=== PATIENT | female | born 1985 | race Caucasian/White ===

== ENCOUNTER 2019-05-13 00:52 | Inpatient (IN) ==
--- NOTE | 2019-05-13 01:56 | History & Physical Report ---
Date of Service May 13, 2019 Assessment & Plan (1) Right renal mass: Ms. Grullon is a 33 year old female with no significant past medical history who was transferred to [facility] from [facility] due to a right sided renal mass. Labs at OSH: WCC 7.9, Hgb 10.8, Platelets 234 Na 140, K 3.1, Cl 101, CO2 29, BUN 4, Creatinine 0.8, Glucose 85, Calcium 8.7. Normal LFTs and lipase. PT 14.10, INR 1.2, PTT 30.8 Lactic Acid 1 UDS negative UA positive for RBC, WBC, and bacteria Right Sided Renal Mass -admit to med/surg -CT abdomen from OSH - "heterogeneous well defined right lower pole renal mass measuring 2.4 cm x 2.2cm x 2.8cm with an accessory right renal artery. ddx: hemorrhagic cyst, focal nephronia, renal tumor. Hyperdense material in right ureter which could represent hematuria. Free fluid in paracolic gutter which may represent hemorrhagic ascites. Moderate free fluid in cul-de-sac and bilateral adnexa. 1.8cm right ovarian cyst." -MRI of abdomen ordered to further evaluate renal mass -afebrile, no WCC elevation, normal lactate, vitals WNL -urine test at outside hospital negative -urology aware, consult placed -given concern for renal abscess, will initiate treatment with IV Zosyn -NPO, maintenance IVF with NS + 20 KCl at 95 mls/hr x 2 bags -analgesia - tylenol, toradol and morphine -IV zofran prn for nausea Hypokalemia -potassium 3.1 in [place] -recheck with AM labs Anemia -patient reportedly has a history of this -Hgb 10.8 -patient currently taking iron supplementation Code status: FULL DVT prophylaxis: SCDs Disposition: admit to med/surg (2) Hypokalemia: (3) History of tubal ligation: (4) History of delivery: History of Present Illness Chief Complaint: Right sided renal mass Primary Care Provider: NO PCP Ms. Grullon is a 33 year old female with no significant past medical history who was transferred to [facility] from [facility] due to a right sided renal mass. Ms. Grullon presented to [facility] yesterday due to intermittent RLQ pain that had been worsening over the past 2 days. The pain was associated with nausea, and chills, but no fever or vomiting. She reports the pain is located in her RLQ, and wraps around to her back. She states it is intermittent in nature, and worse when her bladder is full. She denies dysuria, hematuria, or urgency. She does report vaginal spotting. She states she checked her temperature at home and it was never elevated beyond 100F. PMHx: Hx of ruptured ovarian cyst PSHx: tubal ligation, C/S x 3 Medications: iron supplementation Allergies: celexa Social hx: Works as a cashier tube room. Smoker, 1 PPD. Allergies Allergy/AdvReac Type Severity Reaction Status Date / Time citalopram [From Celexa] Allergy Abdominal Verified 05/13/19 02:28 Pain Past Med/Surg History Medical History delivery delivered Social History Preferred Language: Citizen Of [place] Communication Ability: Effective Infant Nanny Required: Yes Beliefs That Will Affect Care: None Current Living Situation: Spouse Other Information That Helps Us Care for You: No Feels Safe at Home: Yes Safety Concerns: Feels Safe At This Time Smoking Status: Current every day smoker Tobacco Type: cigarettes ; Cigarettes Per Day: 10-20 ; Do You Dip or Chew Tobacco: No ; Second Hand Exposure: Yes ; Hx Alcohol Use: No Hx Substance Use: No Review of Systems Constitutional: + chills, + fatigue and + anorexia; no fever Respiratory: no cough, no dyspnea and no wheezing Cardiovascular: + chest pain (ongoing for years); no palpitations, no lightheadedness, no syncope, no edema and no calf pain Gastrointestinal: + abdominal pain and + nausea; no vomiting and no change in bowel habits Genitourinary: + abnormal vaginal bleeding; no dysuria, no difficulty urinating, no urinary frequency, no urinary urgency and no hematuria Musculoskeletal: + back pain Integumentary: no rash Physical Exam Constitutional: WD/WN, vitals as above + well hydrated; no acute distress Eyes: PERRL, conjunctivae normal, anicteric sclerae ENMT: external ear and nose normal, oropharynx normal Respiratory: normal respiratory effort, lungs clear to auscultation Cardiovascular: RRR, no murmur, no edema Gastrointestinal (Abdomen): Inspection/Auscultation: abdomen normal to inspection; abdomen not distended Percussion/Palpation: + abdomen tender (TTP in RLQ) and abdomen soft; no guarding and abdomen not rigid + right sided flank tenderness Musculoskeletal: no cyanosis or clubbing, extremities motor strength 5/5 Skin: no rashes, warm and dry Psychiatric: A+Ox3, euthymic affect Code Status & VTE Plan VTE Prophylaxis Plan VTE Prophylaxis will be ordered: Yes Supervising Physician Co-Signing Physician Notes Attending addendum: I have physically seen this patient, have supervised the medical residents activities, and agree with the H&P unless as otherwise noted. Assessment and Plan: Right renal mass- Differential on CT from transferring hospital is hemorrhagic cyst versus focal nephronia versus tumor, 2.4 x 2.2 x 2.8 cm in size. LEAD JAVA DEVELOPER ARCHITECT admission. Consult urology. Order MRI for further assessment. NPO Zofran 4 mg IV every 6 hours as needed nausea. Pain control with Tylenol, Toradol and morphine as needed. Follow serial laboratories. Follow urine cultures and blood cultures. Remaining orders and notations noted. Resident Activity Tracking Resident Involvement: Resident Care Provided Care Provided: Adult Hospital Medicine
[2019-05-13] MEDS ORDERED: ONDANSETRON INJ 2 MG/ML 2 ML VIAL IV PRN (02:30)
[2019-05-13] MEDS ORDERED: PIPERACILLIN/TAZOBACTAM 3.375 GM in DEXTROSE 5% 100 ML IV ONE (02:30)
[2019-05-13] MEDS ORDERED: PIPERACILL/TAZOBAC CONSULT ACTIVE PRN (02:30)
[2019-05-13] MEDS ORDERED: KETOROLAC TROMETHAMINE 15 MG/ML VIAL IV PRN (02:30)
[2019-05-13] MEDS: NSS + 20MEQ KCL 20 MEQ/1,000 ML BAG IV SCH ×2 (03:11→15:34)
[2019-05-13] MEDS: MoRPHine SULFATE 2 MG/ML CARP IV PRN ×4 (03:19→14:14)
[2019-05-13 05:43] LABS: Basophils # (auto) 0.01 K/uL (0-0.2); Basophils % (auto) 0.2 %; Eosinophils # (auto) 0.07 K/uL (0-0.5); Eosinophils % (auto) 1.1 %; Hematocrit (blood only) 31.4 % (37-47); Hemoglobin 9.7 g/dL (12.0-16.0); Lymphocytes # (auto) 2.36 K/uL (1.2-3.4); Lymphocytes % (auto) 37.7 %; Mean Corpuscular Hemoglobin 24.6 pg (25-34); Mean Corpuscular Hgb Conc 30.9 g/dL (32-36); Mean Corpuscular Volume 79.5 fL (80-100); Mean Platelet Volume 9.6 fL (7.4-10.4); Monocytes # (auto) 0.63 K/uL (0.11-0.59); Monocytes % (auto) 10.1 %; Neutrophils # (auto) 3.19 K/uL (1.4-6.5); Neutrophils % (auto) 50.9 %; Platelet Count 184 K/uL (130-400); RDW Coefficient of Variation 18.2 % (11.5-14.5); RDW Standard Deviation 52.8 fL (36.4-46.3); Red Blood Count 3.95 M/uL (4.2-5.4); White Blood Count 6.26 K/uL (4.8-10.8)
[2019-05-13 05:57] LABS: INR 1.2 (0.9-1.1); Prothrombin Time 11.7 Seconds (9.0-12.0)
[2019-05-13 06:10] LABS: Calcium 8.1 mg/dl (8.5-10.1); Est GFR (African American) 110.6; Est GFR (Non-African American) 95.4; Potassium 3.4 mmol/L (3.5-5.1)
[2019-05-13] MEDS: PIPERACILLIN/TAZOBACTAM 3.375 GM in DEXTROSE 5% 100 ML IV SCH ×3 (08:07→23:45)
[2019-05-13] MEDS ORDERED: POTASSIUM CHLORIDE 20 MEQ TABCR PO STA (08:47)
--- NOTE | 2019-05-13 10:15 | Urology Consultation ---
Date of Consultation May 13, 2019 Assessment & Plan (1) Right renal mass: Renal mass? CT reviewed - in review of imaging from [place] - there is an area on the anterior portion of the extreme lower pole that has raised some concerns - but on coronal/sag views - I am not 100% certain about the nature of this lesion (simply a normal renal contour vs a mass). I think the MRI will better define this. Overall, I suspect this lesion is an incidental finding and not the cause of her hospitalization or pain She is not showing signs of pyelo/UTI The size of the lesion is quite small, and if it proves to be a true renal mass, definitive treatment will happen as an outpt - not in the acute setting. Following the MRI - if she is stable, she can likely be d/mike home for out pt f/u History of Present Illness Attending Physician: Jerry Zabala MD History of Present Illness 33y/o female, generally in [place] [facility] aside from chronic chest pain and HAs experienced severe right flank pain and lower abdominal pain for the past 2 days denies hematuria or dysuria no hx of stones - no stone passage no fevers prior to arrival CT in [place] - 2cm right lower pole renal mass - imaging scanned into our system - I have reviewed this extensively feeling ok today plan for MRI this AM to better define the kidney anatomy Allergies Allergy/AdvReac Type Severity Reaction Status Date / Time citalopram [From Celexa] Allergy Abdominal Verified 05/13/19 02:28 Pain Patient History Medical History delivery delivered Social History Preferred Language: Ug[place] Communication Ability: Effective Party Plan Demonstrator Required: Yes Beliefs That Will Affect Care: None Current Living Situation: Spouse Other Information That Helps Us Care for You: No Feels Safe at Home: Yes Safety Concerns: Feels Safe At This Time Smoking Status: Current every day smoker Tobacco Type: cigarettes ; Cigarettes Per Day: 10-20 ; Do You Dip or Chew Tobacco: No ; Second Hand Exposure: Yes ; Hx Alcohol Use: No Hx Substance Use: No Review of Systems Review of Systems: All systems reviewed & are unremarkable except as noted in HPI & below Physical Exam Constitutional: well developed and well nourished Neck: neck nontender Respiratory: normal respiratory effort; no respiratory distress and does not use accessory muscles Cardiovascular: Rate/Rhythm: regular rate Vessels: radial pulses present Extremities: no edema Gastrointestinal (Abdomen): Inspection/Auscultation: abdomen normal to inspection Percussion/Palpation: abdomen soft (no real CVA tenderness, no suprapubic tenderness); abdomen nontender and no guarding Musculoskeletal: Head/Neck/Chest: normocephalic and head atraumatic Extremities: extremities normal to inspection Skin: no rashes and no lesions Trauma: no evidence of skin trauma Neurologic: awake; not obtunded Speech / Cognition: normal speech Motor/Sensory: no tremor Psychiatric: Orientation: alert and oriented x 3 Lymphatic: no lymphadenopathy Results & Data Vital Signs (Past 12 Hours) Vital Signs Temp Pulse Resp BP Pulse Ox 05/13/19 07:52 36.5 C 60 15 103/62 98 05/13/19 01:47 36.6 C 12 111/72 97 PG Care Time/CCT Total # of Minutes Spent Total Time Spent with Patient: Total time spent is greater than 50% in coordination of care (as documented) at patient's floor/unit and/or counseling patient:
[2019-05-13 12:39] LABS: Albumin Level 2.9 gm/dl (3.4-5.0); Bilirubin Direct 0.1 mg/dl (0-0.2); Bilirubin,Total 0.4 mg/dl (0.2-1); Thyroid Stimulating Hormone 1.88 uIu/ml (0.300-4.500)
[2019-05-13] MEDS ORDERED: IRON SUCROSE 100 MG in 0.9 % SODIUM CHLORIDE 100 ML IV ONE (13:30)
[2019-05-13] MEDS ORDERED: GADOBUTROL 30ML VIAL IV PRN (13:37)
--- NOTE | 2019-05-13 14:04 | Magnetic Resonance Report ---
MR abdomen wo/w con CLINICAL HISTORY: 33 years-old Female presenting with evaluate right sided kidney mass. TECHNIQUE: Multisequence, multiplanar MR imaging of the abdomen was performed before and after the ad ministration of intravenous contrast. IV contrast: 5.5 mL of Gadavist. COMPARISON: CT from 05/12/2019 performed at an outside hospital. FINDINGS: Localizer images: Unremarkable. Lung bases: Normal heart size. No pericardial or pleural effusion. Lung base clear. Liver: Normal morphology. No liver lesion. Normal hepatic fat fraction. Patent hepatic vasculature. Biliary: No intrahepatic or extrahepatic biliary ductal dilatation. Normal gallbladder. Pancreas: Normal. Spleen: Normal. Adrenal glands: Normal. Kidneys and ureters: The lower pole of the right kidney does not contain a discrete mass. There is a cortical accessory renal artery to the lower pole the right kidney as mentioned on recent CT. Mild as ymmetric right perinephric fat infiltration. The right renal pelvis may be mildly ectatic relative to the left. No hydronephrosis. Mild right urothelial thickening asymmetric to the left. Bowel: Normal. No bowel obstruction. Peritoneal cavity: No free fluid. Lymph nodes: No enlarged lymph nodes in the abdomen. Vasculature: Aorta and IVC patent and normal in caliber. Abdominal wall: Normal. Musculoskeletal: Normal. IMPRESSION: 1. No discrete renal mass. Findings favor an inflammatory process of the right kidney with concern f or pyelonephritis. Correlate with urinalysis. The appearance of the lower pole of the right kidney is suspected to be due to the presence of the accessory vascular supply or less likely focal nephronia/ focal nephritis. Follow-up ultrasound in one to 3 months is recommended. Electronically signed by: Yoel Perla M.D. 05/13/2019 2:02 PM
[2019-05-13] MEDS: LORazepam 0.5 MG/1 ML VIAL IV SCH ×2 (14:23→19:04)
--- NOTE | 2019-05-13 14:47 | History & Physical Bridge Note ---
Date of Service May 13, 2019 History & Physical Bridge Note I have examined the patient, reviewed the History & Physical and in the interval since the performance of the History & Physical I have noted the following changes of clinical significance: no changes noted Ms. Grullon continues to have abdominal pain. She also reports years of intermittent chest pain not associated with exertion and chronic headaches. On she was taken to the emergency department for what they told her was an anxiety attack although she did not actually feel anxious, just had similar symptoms. She is notably anemic on her labs with an iron of 20, she remained hypokalemic this morning. She does not have frequent stools or chronic diarrhea. Abdomen MRI did not see a discrete mass but concerned for pyelonephritis. No leukocytosis, fever, or chills. EKG for chest pain showed normal sinus rhythm - check U/A - In discussing her nutrition history she admits to a very poor diet with a lot of junk food and mountain dew so her deficiencies could certainly be nutritional but will send a celiac panel. Will give IV Venofer today. She reports she has a hard time maintaining a po iron regimen. She was diagnosed with anemia at age 18. - TSH was wnl - check 24 hour urine metanephrines - check gallbladder US - clear liquid diet - continue tobacco cessation counseling
[2019-05-13] MEDS ORDERED: DEXTROSE 50% 50 ML SYRINGE IV ONE (18:29)
[2019-05-13] MEDS ORDERED: DEXTROSE 50% 50 ML SYRINGE IV STA (18:46)
--- NOTE | 2019-05-13 19:53 | Ultrasound Report ---
US gallbladder CLINICAL HISTORY: 33 years-old Female presenting with abdominal pain. TECHNIQUE: Real-time grayscale and limited color Doppler ultrasound imaging of the abdomen limited to the right upper quadrant was performed. COMPARISON: None. FINDINGS: Pancreas: Visualized portions of the pancreatic head and body normal. Liver: Normal echogenicity and echotexture. The liver measures 14.4 cm in maximal sagittal dimension. No sonographic evidence of hepatic mass. Main portal vein patent with normal directional flow. Biliary: No intrahepatic biliary ductal dilatation. Common bile duct measures up to 4 mm in diameter. Gallbladder: No evidence of gallstones. The gallbladder is mildly distended possibly on a physiologic basis. Small amount of pericholecystic fluid along the interface with the liver. No gallbladder wall thickening. Sonographic Garland's sign positive. Right kidney: Normal in appearance without evidence of hydronephrosis. Ascites: None. Other: None. IMPRESSION: Pericholecystic fluid with a mildly distended gallbladder and positive sonographic Garland's sign. In the absence of cholelithiasis this is less specific for cholecystitis though this remains of concern. Notably, these findings were not apparent on same day MRCP. Consider further confirmation with HIDA scan could be considered for clarification depending on the level of clinical concern and patient sym ptomatology. Electronically signed by: Yoel Perla M.D. 05/13/2019 7:52 PM
--- NOTE | 2019-05-13 21:09 | Billing Data ---
Date of Service May 13, 2019 Coding Level of Care Code 43530 Initial Inpt Care Lvl 3
[2019-05-14] MEDS: MoRPHine SULFATE 2 MG/ML CARP IV PRN ×4 (03:19→21:15)
[2019-05-14 05:29] LABS: Appearance Urine Clear (Clear); Bilirubin Urine Negative (Negative); Blood Urine 1+ (Negative); Color Urine Yellow; Glucose Urine UA Negative (Negative); Ketones Urine 1+ (Negative); Leukocyte Esterase Urine Negative (Negative); Nitrite Urine Negative (Negative); Protein Urine Negative (Negative); Specific Gravity Urine 1.015 (1.000-1.030); Urobilinogen Urine Negative (Negative); pH Urine 5.5 (4.5-7.5)
[2019-05-14 05:37] LABS: Epithelial Cell Urine >30 /lpf (0-5)
[2019-05-14 05:38] LABS: WBC Urine 0-5 /hpf (0-5)
[2019-05-14 05:39] LABS: Bacteria Urine Negative (Negative)
[2019-05-14 06:13] LABS: Basophils # (auto) 0.03 K/uL (0-0.2); Basophils % (auto) 0.7 %; Eosinophils # (auto) 0.12 K/uL (0-0.5); Eosinophils % (auto) 2.7 %; Hematocrit (blood only) 28.5 % (37-47); Hemoglobin 8.6 g/dL (12.0-16.0); Immature Granulocytes # (auto) 0.01 K/uL (0.00-0.02); Immature Granulocytes % (auto) 0.2 %; Lymphocytes # (auto) 1.55 K/uL (1.2-3.4); Lymphocytes % (auto) 34.6 %; Mean Corpuscular Hemoglobin 24.4 pg (25-34); Mean Corpuscular Hgb Conc 30.2 g/dL (32-36); Mean Platelet Volume 9.5 fL (7.4-10.4); Monocytes # (auto) 0.38 K/uL (0.11-0.59); Monocytes % (auto) 8.5 %; Neutrophils # (auto) 2.39 K/uL (1.4-6.5); Neutrophils % (auto) 53.3 %; Platelet Count 164 K/uL (130-400); RDW Coefficient of Variation 18.4 % (11.5-14.5); RDW Standard Deviation 54.1 fL (36.4-46.3); Red Blood Count 3.52 M/uL (4.2-5.4); White Blood Count 4.48 K/uL (4.8-10.8)
[2019-05-14 06:52] LABS: Albumin Level 2.7 gm/dl (3.4-5.0); BUN Creatinine Ratio 4.5 (10-20); Calcium 8.2 mg/dl (8.5-10.1); Est GFR (African American) 110.6; Est GFR (Non-African American) 95.4; Potassium 3.4 mmol/L (3.5-5.1)
[2019-05-14 06:55] LABS: Bilirubin,Total 0.3 mg/dl (0.2-1); Globulin 2.8 gm/dl (2.5-4.0); Total Protein 5.5 gm/dl (6.4-8.2)
[2019-05-14] MEDS: PIPERACILLIN/TAZOBACTAM 3.375 GM in DEXTROSE 5% 100 ML IV SCH ×3 (08:34→23:38)
--- NOTE | 2019-05-14 09:54 | Urology Progress Note ---
Date of Service May 14, 2019 Assessment & Plan (1) Right flank pain: 33yo F admitted with flank pain UA with few RBCs but not overly suspicious for UTI. UC&S has not been sent, pt now on broad spectrum abx. MRI reassuring no sign of discrete mass. Right flank pain has resolved per patient report. She is presently stable from standpoint. Recommend 2 weeks of abx for possible early pyelonephritis. We will arrange followup in 2-3 months with Renal US and check UA. Thank you for allowing us to participate in the acute care of Ms. Grullon. Please reconsult us with additional questions, concerns or changes in patient status. Subjective Pt lying in bed, wrapped in blankets upon evaluation this AM. States she feels "terrible". States she no longer has pain in right flank, has now moved to her entire abdomen and thoracic area. Denies LUTS, gross hematuria. MRI results reviewed, revealing no discrete renal mass. Findings favor an inflammatory process of the right kidney. The appearance of the lower pole of the right kidney is suspected to be due to the presence of the accessory vascular supply or less likely focal nephronia/focal nephritis. NPO on hold for possible HIDA scan today. Review of Systems Review of Systems: All systems reviewed & are unremarkable except as noted in HPI & below Physical Exam Physical Exam: A&Ox3 Resp rate regular Results & Data Vital Signs (Past 12 Hours) Vital Signs Temp Pulse Resp BP Pulse Ox 05/14/19 07:12 36.6 C 66 19 92/52 L 99 05/13/19 23:05 37 C 70 18 101/66 97 PG Care Time/CCT Total # of Minutes Spent Total Time Spent with Patient: Total time spent is greater than 50% in coordination of care (as documented) at patient's floor/unit and/or counseling patient:
[2019-05-14] MEDS ORDERED: SINCALIDE 1.1 MCG in 0.9 % SODIUM CHLORIDE 100 ML IV SCH (11:00)
--- NOTE | 2019-05-14 12:34 | Nuclear Medicine Report ---
NM hepatobiliary EF CLINICAL HISTORY: 33 years-old Female with equivocal gallbladder US. Acute right upper quadrant abdo lashay pain TECHNIQUE: Following the intravenous administration of 5.03 mCi of technetium-99m Choletec, sequenti al abdominal images were obtained. In order to evaluate the contractile response of the gallbladder, 1.1 mcg of Kinevac was administered by slow intravenous infusion over 30 minutes starting approximat millie 60 minutes after the administration of the radiopharmaceutical. Sequential imaging was continued for 45 minutes after the start of the Kinevac infusion. COMPARISON: Right upper quadrant abdominal ultrasound 05/13/2019 FINDINGS: There is prompt, uniform accumulation of the tracer by the liver. There is normal filling of the int rahepatic ducts, common bile duct and gallbladder and normal excretion of the tracer into the duodenu m. There is decreased contraction of the gallbladder. The calculated gallbladder ejection fraction is 14% (normal >40%). There is moderate enterogastric reflux. IMPRESSION: 1. Decreased contractile response of the gallbladder to Kinevac infusion. 2. Moderate enterogastric reflux. The above report was generated using voice recognition software. It may contain grammatical, syntax o r spelling errors. Electronically signed by: Celso Mon M.D. 05/14/2019 12:33 PM
--- NOTE | 2019-05-14 15:07 | Surgery Consultation ---
Date of Consultation May 14, 2019 Assessment & Plan (1) Right flank pain: Patient does have dysfunction of her gallbladder and it is somewhat distended. I am not convinced she has acute cholecystitis or even significant biliary colic Seems to be hungry and wants to try normal food. Do not feel that I have to Suggest she have her gallbladder out Urgently. She seems to fail advancement of her diet then we may consider proceeding with laparoscopic cholecystectomy. I do think she could be followed in the office depending on her progress History of Present Illness Attending Physician: Servando Zarco Richelle History of Present Illness Patient admitted with what appears to be right flank pain And possible mild pyelonephritis. She had an MRI scan which showed A normal gallbladder, However Her ultrasound shows a mildly dilated gallbladder with mild thickening And no stone, There is a question of a Garland sign. She had a HIDA scan She did show visualization of her gallbladder but poor ejection fraction. Currently she is in her room walking Normally and she says she is hungry She has not had any nausea or vomiting. Allergies Allergy/AdvReac Type Severity Reaction Status Date / Time citalopram [From Celexa] Allergy Abdominal Verified 05/13/19 02:28 Pain Patient History Medical History delivery delivered Social History Preferred Language: Yi Communication Ability: Effective Structural Analysis Engineer Required: Yes Beliefs That Will Affect Care: None Current Living Situation: Spouse Other Information That Helps Us Care for You: No Feels Safe at Home: Yes Safety Concerns: Feels Safe At This Time Smoking Status: Current every day smoker Tobacco Type: cigarettes ; Cigarettes Per Day: 10-20 ; Do You Dip or Chew Tobacco: No ; Second Hand Exposure: Yes ; Hx Alcohol Use: No Hx Substance Use: No Review of Systems Review of Systems: All systems reviewed & are unremarkable except as noted in HPI & below Physical Exam Physical Exam: Patient does not appear to be ill, She does have mild right upper quadrant tenderness to palpation I am not convinced this is from her gallbladder. Respiratory: normal respiratory effort; no respiratory distress Cardiovascular: Rate/Rhythm: regular rate Gastrointestinal (Abdomen): Inspection/Auscultation: abdomen normal to inspection; abdomen not distended Skin: no rashes, warm and dry Neurologic: awake Psychiatric: Orientation: alert Results & Data Vital Signs (Past 12 Hours) Vital Signs Temp Pulse Resp BP Pulse Ox 05/14/19 07:12 36.6 C 66 19 92/52 L 99 I have reviewed her ultrasound And MRI PG Care Time/CCT Total # of Minutes Spent Total Time Spent with Patient: Total time spent is greater than 50% in coordinat ion of care (as documented) at patient's floor/unit and/or counseling patient:
[2019-05-14 18:28] LABS: Hematocrit (blood only) 31.3 % (37-47); Hemoglobin 9.3 g/dL (12.0-16.0)
--- NOTE | 2019-05-14 23:33 | Hospitalist Progress Note ---
Date of Service May 14, 2019 Assessment & Plan (1) Right renal mass: Ms. Grullon is a 33 year old female with no significant past medical history who was transferred to [facility] from [facility] due to a right sided renal mass. Labs at OSH: WCC 7.9, Hgb 10.8, Platelets 234 Na 140, K 3.1, Cl 101, CO2 29, BUN 4, Creatinine 0.8, Glucose 85, Calcium 8.7. Normal LFTs and lipase. PT 14.10, INR 1.2, PTT 30.8 Lactic Acid 1 UDS negative UA positive for RBC, WBC, and bacteria Right Sided Renal Mass -admit to med/surg -CT abdomen from OSH - "heterogeneous well defined right lower pole renal mass measuring 2.4 cm x 2.2cm x 2.8cm with an accessory right renal artery. ddx: hemorrhagic cyst, focal nephronia, renal tumor. Hyperdense material in right ureter which could represent hematuria. Free fluid in paracolic gutter which may represent hemorrhagic ascites. Moderate free fluid in cul-de-sac and bilateral adnexa. 1.8cm right ovarian cyst." -MRI of abdomen ordered to further evaluate renal mass -MRI does not show a mass, howeVer signs of possible pyelonephritis, will continue with antibIotic. -afebrile, no WCC elevation, normal lactate, vitals WNL -urine test at outside hospital negative -urology aware, appreciate input. -AWAITING URINE CULTURE RESULTS -analgesia - tylenol, toradol and morphine -IV zofran prn for nausea Hypokalemia -potassium 3.4 will replace and monitor. Anemia -patient reportedly has a history of this -Hgb 10.8 -patient currently taking iron supplementation Code status: FULL DVT prophylaxis: SCDs Disposition: admit to med/surg (2) Hypokalemia: (3) History of tubal ligation: (4) History of delivery: (5) Abdominal pain: PATIENT NOW HAVING GENERALIZED ABDOMINAL PAIN. Unsure as the cause. her exam appears benign. Her vitals are also stable wondering if this has a somatic cause and may benefit from gabapentin or cymbalta. At the moment, will need to rule out other potential causes. Consulted Gen surg. for possible cholecystectomy. However, patient states she is hungry. Will do trial of food. If pain persists, may consider GI consult for possible scope. Subjective 33 YO FEMALE REPORTS THAT she continues to have abdominal pain. She states it is no longer in her right flank but now it is generalized.She reports pain was sharp when it was in the right flank but now it is dull and intermittent. But the frequency has been gradually improving. She states this has been accompanied by loose stools for the past 24-48 hours. Review of Systems Review of Systems: All systems reviewed & are unremarkable except as noted in HPI & below Physical Exam Physical Exam: Constitutional: WD/WN, vitals as above + well hydrated; no acute distress Eyes: PERRL, conjunctivae normal, anicteric sclerae ENMT: external ear and nose normal, oropharynx normal Respiratory: normal respiratory effort, lungs clear to auscultation Cardiovascular: RRR, no murmur, no edema Gastrointestinal (Abdomen): Inspection/Auscultation: abdomen normal to inspection; abdomen not distended Percussion/Palpation: + abdomen tender generalized and abdomen soft; no guarding and abdomen not rigid, no rebound tenderness Musculoskeletal: no cyanosis or clubbing, extremities motor strength 5/5 Skin: no rashes, warm and dry Psychiatric: A+Ox3, euthymic affect Results & Data Vital Signs (Past 12 Hours) Vital Signs Temp Pulse Resp BP BP Pulse Ox 05/14/19 16:58 36.7 C 56 L 16 109/54 L 100 05/14/19 15:31 36.7 C 66 18 102/65 99 PG Care Time/CCT Total # of Minutes Spent Total Time Spent with Patient: Total time spent is greater than 50% in coordination of care (as documented) at patient's floor/unit and/or counseling patient:
[2019-05-15] MEDS: MoRPHine SULFATE 2 MG/ML CARP IV PRN ×6 (03:33→23:50)
--- NOTE | 2019-05-15 06:51 | Surgery Progress Note ---
Date of Service May 15, 2019 Assessment & Plan (1) Abdominal pain: I think we should proceed with laparoscopic cholecystectomy I think she agrees but she is unsure at the present time and wants to discuss it with her Depending on how the day goes my plan will be to proceed tomorrow See how she does today Subjective She did tolerate some food without nausea or vomiting but did have some midepigastric pain during the night Physical Exam Physical Exam: Her abdomen is soft she seems to be resting comfortably Respiratory: no respiratory distress Cardiovascular: Rate/Rhythm: regular rate Skin: no rashes, warm and dry Neurologic: awake Psychiatric: Orientation: alert Results & Data Vital Signs (Past 12 Hours) Vital Signs Temp Pulse Resp BP Pulse Ox 05/14/19 23:05 36.6 C 60 16 114/74 99 PG Care Time/CCT Total # of Minutes Spent Total Time Spent with Patient: Total time spent is greater than 50% in coordination of care (as documented) at patient's floor/unit and/or counseling patient:
[2019-05-15] MEDS: POTASSIUM CHLORIDE 20 MEQ TABCR PO SCH ×2 (08:22→20:47)
[2019-05-15] MEDS: PIPERACILLIN/TAZOBACTAM 3.375 GM in DEXTROSE 5% 100 ML IV SCH ×2 (08:22→16:57)
[2019-05-15 09:51] LABS: Basophils # (auto) 0.04 K/uL (0-0.2); Basophils % (auto) 0.9 %; Eosinophils # (auto) 0.21 K/uL (0-0.5); Eosinophils % (auto) 4.6 %; Hematocrit (blood only) 31.1 % (37-47); Hemoglobin 9.4 g/dL (12.0-16.0); Lymphocytes # (auto) 1.56 K/uL (1.2-3.4); Lymphocytes % (auto) 34.4 %; Mean Corpuscular Hemoglobin 24.5 pg (25-34); Mean Corpuscular Hgb Conc 30.2 g/dL (32-36); Monocytes # (auto) 0.41 K/uL (0.11-0.59); Neutrophils # (auto) 2.32 K/uL (1.4-6.5); Neutrophils % (auto) 51.1 %; Platelet Count 179 K/uL (130-400); RDW Coefficient of Variation 18.6 % (11.5-14.5); RDW Standard Deviation 54.8 fL (36.4-46.3); Red Blood Count 3.84 M/uL (4.2-5.4); White Blood Count 4.54 K/uL (4.8-10.8)
[2019-05-15] MEDS: ACETAMINOPHEN 1,000 MG/100 ML VIAL IV PRN ×2 (09:59→20:47)
[2019-05-15 10:28] LABS: BUN Creatinine Ratio 5.6 (10-20); Calcium 8.7 mg/dl (8.5-10.1); Est GFR (African American) 121.4; Est GFR (Non-African American) 104.7; Magnesium 1.8 mg/dl (1.8-2.4); Potassium 3.8 mmol/L (3.5-5.1)
[2019-05-15 10:33] LABS: Ferritin 59.5 ng/ml (8-388)
[2019-05-15] MEDS: D5W AND 1/2NSS + 20MEQ KCL 20 MEQ/1,000 ML BAG IV SCH (16:52)
[2019-05-15] MEDS: SUCRALFATE 1 GM/10 ML UDC PO SCH ×2 (16:54→20:47)
[2019-05-15 18:41] LABS: Amphetamines+Metham, Urine Neg (Neg); Barbiturates, Urine Neg (Neg); Benzodiazepine, Urine Neg (Neg); Cocaine, Urine Neg (Neg); MDMA (Ecstacy), Urine Neg (Neg); Methadone, Urine Neg (Neg); Opiate, Urine Pos (Neg); Phencyclidine, Urine Neg (Neg)
--- NOTE | 2019-05-15 20:55 | Hospitalist Progress Note ---
Date of Service May 15, 2019 Assessment & Plan (1) Pyelonephritis: right-sided radiographically. was having flank pain recently - this is improved/resolved. urine cx here is negative but it was obtained AFTER antibiotics had been given. will call [facility] tomorrow to see if any urine/blood cx's were done prior to transfer. hopefully can de-escalate abx tomorrow. odd that she never had fevers/chills in midst of this illness. (2) Chest pain: due to GI issues/reflux? anxiety? start carafate 1gm qid and re-eval. treat anxiety as well. (3) Biliary dyskinesia: HIDA scan with marked decrease in EF. No obvious signs of acute cholecystitis on imaging however. With that said, in light of ongoing GI symptoms, gen surg has offered lap delilah. She wishes to proceed; NPO after MN tonight w/ lap delilah tomorrow. Start IVF. (4) Anemia: Ferritin is about 50 but with current infection it could be falsely elevated. MCV is low-normal; do suspect some element of FE def. Check b12/folate in am. This is a significant anemia and needs f/u post-d/c. (5) Abdominal pain: 2nd to right-sided pyelo. 2nd to biliary tract disease? reflux? other causes? treat pain. lap delilah tomorrow. IV zosyn for pyelo with hopes to narrow tomorrow. (6) Right renal mass: ruled OUT. MRI right kidney WITHOUT ANY MASS. MRI most c/w focal pyelonephritis. (7) Anxiety: start buspar 5mg BID. refer for outpatient counseling. consider SSRI. send urine drug screen to be complete. Subjective patient was sitting comfortably in chair when I walked into the room. within a few minutes she was c/o diffuse abdominal pain and even chest discomfort. worst pain was the LOWER abdomen. states she is NOT drinking fluids; no appetite. c/o dizziness with standing. denies right flank pain. denies left flank pain. does have lumbar back pain. with respect to chest pain - states it comes on when the abdominal pain is there. denies excessive burping/belching. denies reflux type symptoms but has had nausea. states she vomited earlier today. no fevers or chills at ANY POINT during her entire illness. did have loose stool x 2 earlier in the day. she DOES want to have lap delilah tomorrow. at one point during the visit she became very upset and was crying. admits to "panic attacks." states that during one panic attack she saught out medical attention in the ER in [place]. I asked her what they gave her for it and she said "nothing." PDMP was reviewed - no benzos given for the anxiety. she admits to numerous psychosocial stressors - 3 children, having surgery soon, issues with employment, etc. Review of Systems Constitutional: + anorexia; no fever and no chills Respiratory: no cough and no dyspnea Cardiovascular: as per Subjective / HPI and + chest pain; no dyspnea, no dyspnea on exertion, no orthopnea and no paroxysmal nocturnal dyspnea Gastrointestinal: + abdominal pain, + bloating, + nausea, + vomiting and + diarrhea/loose stools; no blood in stools Genitourinary: no dysuria and no hematuria Psychiatric: + depression and + anxiety Physical Exam Constitutional: + acute distress (due to pain) and + ill appearing; no altered mental status ENMT: external ear and nose normal, oropharynx normal Respiratory: normal respiratory effort, lungs clear to auscultation Cardiovascular: RRR, no murmur, no edema Heart Sounds: normal S1 and normal S2 Vessels: posterior tibial pulses present and dorsalis pedis pulses present Gastrointestinal (Abdomen): Inspection/Auscultation: normal bowel sounds; abdomen not distended Percussion/Palpation: + abdomen tender (epigastric region) and abdomen soft; no guarding and no hepatosplenomegaly Skin: no rashes, warm and dry Psychiatric: Orientation: alert and oriented x 3 Affect: + anxious affect and + tearful affect Results & Data Vital Signs (Past 12 Hours) Vital Signs Temp Pulse Resp BP Pulse Ox 05/15/19 14:59 36.7 C 59 L 16 125/82 98 Laboratory Results Laboratory Results - last 24 hr 05/15/19 05/15/19 05/15/19 09:33 09:33 17:36 WBC 4.54 L RBC 3.84 L Hgb 9.4 L Hct 31.1 L MCV 81.0 MCH 24.5 L MCHC 30.2 L RDW Std Deviation 54.8 H RDW Coeff of Misti 18.6 H Plt Count 179 MPV 9.0 Immature Gran % (Auto) 0.0 Neut % (Auto) 51.1 Lymph % (Auto) 34.4 [place] % (Auto) 9.0 Eos % (Auto) 4.6 Baso % (Auto) 0.9 Immature Gran # (Auto) 0.00 Neut # (Auto) 2.32 Lymph # (Auto) 1.56 [place] # (Auto) 0.41 Eos # (Auto) 0.21 Baso # (Auto) 0.04 Sodium 142 Potassium 3.8 Chloride 108 H Carbon Dioxide 30 Anion Gap 3.0 BUN 4 L Creatinine 0.75 Est Cr Clr Drug Dosing 81.0 Est GFR ( Amer) 121.4 Est GFR (Non-Af Amer) 104.7 BUN/Creatinine Ratio 5.6 L Glucose 81 Calcium 8.7 Magnesium 1.8 Ferritin 59.5 Lipase 66 L Urine Opiates Screen Pos H U Codeine Confrm GC/MS Ur Morphine (GC/MS) Ur Hydrocodone (GC/MS) Ur Norhydrocodone Ur Noroxycodone Urine Oxycodone (GC/MS) U Oxymorphone GC/MS Ur Methadone, Qual Neg Ur Hydromorphone (GC/MS) Urine Barbiturates Neg Ur Phencyclidine (PCP) Neg U Amphetamin/Meth Scrn Neg MDMA (Ecstasy) Screen Neg U Benzodiazepines Scrn Neg Ur Cocaine Metabolite Neg U Marijuana (THC) Screen Neg Drug Screen Comment 05/15/19 17:36 WBC RBC Hgb Hct MCV MCH MCHC RDW Std Deviation RDW Coeff of Misti Plt Count MPV Immature Gran % (Auto) Neut % (Auto) Lymph % (Auto) [place] % (Auto) Eos % (Auto) Baso % (Auto) Immature Gran # (Auto) Neut # (Auto) Lymph # (Auto) [place] # (Auto) Eos # (Auto) Baso # (Auto) Sodium Potassium Chloride Carbon Dioxide Anion Gap BUN Creatinine Est Cr Clr Drug Dosing Est GFR ( Amer) Est GFR (Non-Af Amer) BUN/Creatinine Ratio Glucose Calcium Magnesium Ferritin Lipase Urine Opiates Screen U Codeine Confrm GC/MS Pending Ur Morphine (GC/MS) Pending Ur Hydrocodone (GC/MS) Pending Ur Norhydrocodone Pending Ur Noroxycodone Pending Urine Oxycodone (GC/MS) Pending U Oxymorphone GC/MS Pending Ur Methadone, Qual Ur Hydromorphone (GC/MS) Pending Urine Barbiturates Ur Phencyclidine (PCP) U Amphetamin/Meth Scrn MDMA (Ecstasy) Screen U Benzodiazepines Scrn Ur Cocaine Metabolite U Marijuana (THC) Screen Drug Screen Comment Pending PG Care Time/CCT Total # of Minutes Spent Total Time Spent with Patient: Total time spent is greater than 50% in coordination of care (as documented) at patient's floor/unit and/or counseling patient: (1) Chest pain Chest pain type: unspecified Qualified Code(s): R07.9 - Chest pain, unspecified (2) Anemia Anemia type: other cause Other causes of anemia: other cause, not classified Qualified Code(s): D64.89 - Other specified anemias (3) Abdominal pain Abdominal location: generalized Qualified Code(s): R10.84 - Generalized abdominal pain
--- NOTE | 2019-05-15 22:04 | Anesthesiology Consultation ---
Date of Service May 15, 2019 Assessment & Plan (1) Abdominal pain: (2) Hypokalemia: (3) Encounter for pre-operative examination: Chart Review Chart Review: Acceptable Risk for Surgery, Patient NOT seen in Pre Admission Testing and data entry processor initiated Consults Requested none History Surgery Operation Date: 05/16/19 12:30 Proposed Procedures p Laparoscopic Cholecystectomy - Abner Lechuga MD, FACS Height/Weight Height: 4 ft 11 in Weight: 55.5 kg Allergies Allergy/AdvReac Type Severity Reaction Status Date / Time citalopram [From Celexa] Allergy Abdominal Verified 05/13/19 02:28 Pain Medications Active Medications Generic Name Dose Route Start Last Admin Trade Name Freq PRN Reason Stop Dose Admin Buspirone HCl 5 mg 05/15/19 21:00 05/15/19 20:47 Buspar PO 06/14/19 20:59 5 mg BID ROSY Administration Gadobutrol 6 ml 05/13/19 13:37 05/13/19 13:38 Gadavist 30ml IV 05/17/19 13:36 6 ml ONCE PRN Administration Interaction Checking Acetaminophen 1,000 mg in 100 mls @ 400 mls/hr 05/13/19 02:30 05/15/19 21:02 Ofirmev IV 05/16/19 02:29 Infused Q8H PRN Infusion Pain or Fever Piperacillin Sod/Tazobactam 115 mls @ 28.75 mls/hr 05/13/19 08:00 05/15/19 21:02 Sod 3.375 gm/ Dextrose IV 05/23/19 07:59 Infused Q8H ROSY Infusion Protocol Potassium Chloride/Dextrose/Sod Cl 20 meq in 1,000 mls @ 100 mls/hr 05/15/19 16:30 05/15/19 16:52 D5w And 1/2nss + 20meq Kcl IV 06/14/19 16:29 100 mls/hr .Q10H ROSY Administration Ketorolac Tromethamine 15 mg 05/13/19 02:30 05/14/19 22:18 Toradol IV 05/18/19 02:29 15 mg Q6H PRN Administration Pain Morphine Sulfate 2 mg 05/13/19 02:30 05/15/19 20:00 Morphine Sulfate IV 05/27/19 02:29 2 mg Q3H PRN Administration Pain Ondansetron HCl 4 mg 05/13/19 02:30 05/13/19 20:12 Zofran IV 06/12/19 02:29 4 mg Q6H PRN Administration Nausea Potassium Chloride 20 meq 05/15/19 09:00 05/15/19 20:47 Klor-Con M20 PO 06/14/19 08:59 20 meq BID ROSY Administration Sucralfate 1 gm 05/15/19 16:30 05/15/19 20:47 Carafate PO 06/14/19 16:29 1 gm ACHS ROSY Administration Past Medical History Medical History Abdominal pain Anemia delivery delivered Hypokalemia Past Surgical History Surgical History History of delivery History of tubal ligation Social History Smoking Status: Current every day smoker tobacco type: cigarettes Smoking cigarettes per day: 10-20 Do You Dip or Chew Tobacco: No Hx Alcohol Use: No Hx Substance Use: No Physical Exam Vital Signs Last Vital Signs Temp 36.7 C 05/15/19 14:59 Pulse 59 L 05/15/19 14:59 Resp 16 05/15/19 14:59 BP 125/82 05/15/19 14:59 Pulse Ox 98 05/15/19 14:59 Testing Laboratory Results 05/15/19 09:33 05/15/19 09:33 PT 11.7 Seconds (9.0-12.0) 05/13/19 05:08 INR 1.2 (0.9-1.1) H 05/13/19 05:08 Urine Color Yellow 05/14/19 03:00 Urine Appearance Clear (Clear) 05/14/19 03:00 Urine pH 5.5 (4.5-7.5) 05/14/19 03:00 Ur Specific [place] 1.015 (1.000-1.030) 05/14/19 03:00 Urine Protein Negative (Negative) 05/14/19 03:00 Urine Glucose (UA) Negative (Negative) 05/14/19 03:00 Urine Ketones 1+ (Negative) H 05/14/19 03:00 Urine Nitrite Negative (Negative) 05/14/19 03:00 Ur Leukocyte Esterase Negative (Negative) 05/14/19 03:00 Urine RBC 5-10 /hpf (0-4) H 05/14/19 03:00 Urine WBC 0-5 /hpf (0-5) 05/14/19 03:00 Ur Epithelial Cells >30 /lpf (0-5) H 05/14/19 03:00 05/14/19 03:00 Urine Culture - Preliminary Urine,Clean Catch No growth - Less than 1,000 colonies/mL, Final report to follow. Electrocardiogram Date: 05/13/19 Findings: + NSR @ (65) sinus arrhythmia
[2019-05-15 23:14] LABS: IgA Serum 97 mg/dL (47-310); Tis Trans IgA 1 U/mL
[2019-05-16] MEDS: PIPERACILLIN/TAZOBACTAM 3.375 GM in DEXTROSE 5% 100 ML IV SCH ×3 (00:41→16:08)
[2019-05-16] MEDS: D5W AND 1/2NSS + 20MEQ KCL 20 MEQ/1,000 ML BAG IV SCH ×2 (03:09→16:03)
[2019-05-16] MEDS: MoRPHine SULFATE 2 MG/ML CARP IV PRN ×3 (03:10→11:22)
--- NOTE | 2019-05-16 06:56 | History & Physical Bridge Note ---
Date of Service May 16, 2019 History & Physical Bridge Note I have examined the patient, reviewed the History & Physical and in the interval since the performance of the History & Physical I have noted the following changes of clinical significance: no changes noted
[2019-05-16] MEDS: POTASSIUM CHLORIDE 20 MEQ TABCR PO SCH ×2 (07:48→20:13)
[2019-05-16] MEDS: SUCRALFATE 1 GM/10 ML UDC PO SCH ×4 (07:49→20:13)
[2019-05-16 08:06] LABS: Hematocrit (blood only) 30.2 % (37-47); Hemoglobin 9.3 g/dL (12.0-16.0); Mean Corpuscular Hemoglobin 24.8 pg (25-34); Mean Corpuscular Hgb Conc 30.8 g/dL (32-36); Mean Corpuscular Volume 80.5 fL (80-100); Mean Platelet Volume 9.5 fL (7.4-10.4); Platelet Count 171 K/uL (130-400); RDW Coefficient of Variation 18.5 % (11.5-14.5); RDW Standard Deviation 53.9 fL (36.4-46.3); Red Blood Count 3.75 M/uL (4.2-5.4); White Blood Count 3.52 K/uL (4.8-10.8)
[2019-05-16 08:31] LABS: BUN Creatinine Ratio 3.4 (10-20); Calcium 8.7 mg/dl (8.5-10.1); Creatinine Clr Calc Pharmacy 74.1 ml/min; Potassium 4.3 mmol/L (3.5-5.1)
[2019-05-16 08:59] LABS: Folate (Folic Acid) 10.44 ng/ml (>5.38)
[2019-05-16] MEDS ORDERED: MIDAZOLAM HCL 1 MG/ML 2ML VIAL ONE (11:57)
[2019-05-16] MEDS ORDERED: fentaNYL citrate 100 MCG/2 ML VIAL ONE (11:57)
[2019-05-16] MEDS ORDERED: ATROPINE SULFATE 0.1 MG/ML 10ML SYR IV PRN (12:27)
[2019-05-16] MEDS ORDERED: ONDANSETRON INJ 2 MG/ML 2 ML VIAL IV PRN ×2 (12:27→15:53)
[2019-05-16] MEDS ORDERED: PROMETHAZINE HCL 6.25 MG in SODIUM CHLORIDE 0.9% 50 ML IV PRN (12:27)
[2019-05-16] MEDS ORDERED: KETOROLAC 30 MG/ML VIAL IV PRN (12:27)
[2019-05-16] MEDS ORDERED: BUPIVACAINE 0.5 % 5 MG/1 ML MPF 30ML VIAL ONE (12:51)
[2019-05-16] MEDS ORDERED: ROCURONIUM BROMIDE 10 MG/ML 5 ML VIAL ONE (13:28)
[2019-05-16] MEDS ORDERED: ONDANSETRON INJ 2 MG/ML 2 ML VIAL ONE (13:28)
[2019-05-16] MEDS ORDERED: LIDOCAINE HCL 2% 2 ML VIAL/AMP(20MG/ML) INFIL ONE (13:28)
[2019-05-16] MEDS ORDERED: DEXAMETHASONE SOD INJ 4 MG/ML VIAL ONE (13:28)
[2019-05-16] MEDS ORDERED: ePHEDrine sulfate 50 MG/ML SYR ONE (13:28)
[2019-05-16] MEDS ORDERED: PHENYLEPHRINE 100MCG/ML 5ML SYR ONE (13:28)
[2019-05-16] MEDS ORDERED: LARYING-O-JET KIT (LTA) ONE (13:28)
[2019-05-16] MEDS ORDERED: PROPOFOL IV EMULSION 10 MG/ML 20 ML VIAL IV ONE (13:28)
[2019-05-16] MEDS ORDERED: GLYCOPYRROLATE 0.2 MG/ML VIAL ONE (13:28)
[2019-05-16] MEDS ORDERED: NEOSTIGMINE METHYLSULFATE 5 MG/5 ML SYR ONE (13:28)
[2019-05-16] MEDS ORDERED: ACETAMINOPHEN 1000 MG/100 ML IV IV ONE (13:31)
[2019-05-16] MEDS ORDERED: ACETAMINOPHEN 1,000 MG/100 ML VIAL IV STA (13:56)
--- NOTE | 2019-05-16 13:56 | Post Operative Brief Note ---
PG Immediate Post Op with CF Date of Surgery May 16, 2019 Pre & Post Diagnosis Operation Date: 05/16/19 12:30 Pre-Op Diagnosis: Abdominal pain Post-Op Diagnosis: Acute cholecystitis, edema in wall of gallbladder I identified the patient and participated in the time-out.: Yes Procedure Operation Date: 05/16/19 12:30 Actual Procedures p Laparoscopic Cholecystectomy(Not Applicable) - Abner Lechuga MD, FACS Surgeon Abner Lechuga MD, FACS Boating Safety Officer Thong Menon Estimated Blood Loss 10 Findings See Below (significant gallbladder inflammation) Specimens Specimen Description: Permanent Specimen: A) Gallbladder and Contents
--- NOTE | 2019-05-16 14:10 | Operative Report ---
DATE OF OPERATION: 05/16/2019 NAME OF OPERATION: Laparoscopic cholecystectomy. PREOPERATIVE DIAGNOSIS: Biliary colic with abdominal pain. POSTOPERATIVE DIAGNOSIS: Acute cholecystitis. STAFF SURGEON: Abner Lechuga M.D. FIRE INVESTIGATION LIEUTENANT: Nory De Santiago. ANESTHESIA: General. DESCRIPTION OF PROCEDURE: The patient was brought in the operating room and placed on the operating table in supine position. Her abdomen was prepped and draped in usual fashion. My sourcing assistant helped with prepping, draping, removal of the gallbladder and closure of the wounds. A 0.5% plain Marcaine was used to anesthetize all incisions. Incision was made above the umbilicus, carrying dissection down identifying the fascia, placing a Veress needle, producing pneumoperitoneum. An 11 mm port placed at this level and then under visualization, three 5 mm ports placed, 1 cephalad and 2 laterally. Gallbladder was grasped and retracted. It was thickened and inflamed consistent with acute cholecystitis. It was aspirated of bile. Dissection carried out the ovidio hepatis, which was very edematous identifying the common bile duct. Cystic duct was identified. Cystic artery identified. These were clipped and transected. The gallbladder dissected away from the liver bed. There was severe edema in the posterior wall. Gallbladder was placed in an Endobag. After appropriate hemostasis and irrigation, the Endobag was removed through the umbilical site. All ports were removed. The umbilical fascia closed using interrupted 0 Vicryl suture. Skin reapproximated using subcuticular 4-0 Monocryl and Steri-Strips at the 5 mm site, Dermabond at the umbilicus. The patient was transferred to recovery room in stable condition. I attest to the content of the Intraoperative Record and any orders documented therein. Any exception s are noted below.
[2019-05-16] MEDS: HYDROmorphone INJ 1 MG/ML SYRINGE IV PRN ×4 (14:31→14:58)
--- NOTE | 2019-05-16 14:46 | Anesthesiology Progress Note ---
Date of Service May 16, 2019 Anesthesia Post Procedure Vital Signs Vital Signs: Temp Pulse Pulse Resp BP BP Pulse Ox 05/16/19 14:25 62 16 165/97 H 100 05/16/19 14:15 59 L 16 121/85 100 05/16/19 14:06 36 C L 62 14 140/75 100 05/16/19 12:12 36.6 C 63 18 115/79 100 05/16/19 07:15 36.5 C 59 L 16 116/65 100 05/15/19 23:38 36.7 C 74 16 119/74 100 05/15/19 14:59 36.7 C 59 L 16 125/82 98 Pain Intensity Upper Abdomen: Pain Intensity: 10 Abdomen: Pain Intensity: 8 Transfer of Care Handoff Completed per policy Notes Mental Status: alert / awake / arousable Patient Amnestic to Procedure: Yes Nausea / Vomiting: adequately controlled Pain: adequately controlled Airway Patency, RR, SpO2: stable & adequate BP & HR: stable & adequate Hydration State: stable & adequate Anesthetic Complications: no major complications apparent
[2019-05-16] MEDS ORDERED: fentaNYL citrate 100 MCG/2 ML VIAL IV PRN (15:07)
--- NOTE | 2019-05-16 15:11 | Anesthesiology Progress Note ---
Date of Service May 16, 2019 Anesthesia Post Procedure Vital Signs Vital Signs: Temp Pulse Pulse Resp BP BP Pulse Ox 05/16/19 14:45 71 18 169/93 H 97 05/16/19 14:35 69 18 162/86 H 98 05/16/19 14:25 62 16 165/97 H 100 05/16/19 14:15 59 L 16 121/85 100 05/16/19 14:06 96.8 F L 62 14 140/75 100 05/16/19 12:12 97.9 F 63 18 115/79 100 05/16/19 07:15 97.7 F 59 L 16 116/65 100 05/15/19 23:38 98.1 F 74 16 119/74 100 Pain Intensity Upper Abdomen: Pain Intensity: 10 Abdomen: Pain Intensity: 8 Transfer of Care Handoff Completed per policy Notes Mental Status: alert / awake / arousable and participated in evaluation Patient Amnestic to Procedure: Yes Nausea / Vomiting: adequately controlled Pain: adequately controlled Airway Patency, RR, SpO2: stable & adequate BP & HR: stable & adequate Hydration State: stable & adequate Anesthetic Complications: no major complications apparent and Pt Satisfied with anesthetic care
[2019-05-16] MEDS ORDERED: HYDROmorphone INJ 1 MG/ML SYRINGE IV PRN (15:53)
[2019-05-16] MEDS ORDERED: IBUPROFEN 600 MG TAB PO PRN (15:53)
[2019-05-16] MEDS ORDERED: ACETAMINOPHEN 325 MG TAB PO PRN (15:53)
[2019-05-16] MEDS ORDERED: HYDROmorphone INJ 0.5 MG/0.5 ML SYR IV PRN (15:53)
[2019-05-16] MEDS ORDERED: PROMETHAZINE HCL 12.5 MG in SODIUM CHLORIDE 0.9% 50 ML IV PRN (15:53)
[2019-05-16] MEDS ORDERED: HYDROCODONE/ACETAMOPHEN 5/325MG TAB PO PRN (15:53)
[2019-05-16] MEDS ORDERED: SODIUM CHLORIDE 0.9% 1000ML 1,000 ML IV SCH (15:53)
[2019-05-16] MEDS ORDERED: PROMETHAZINE HCL 25 MG in SODIUM CHLORIDE 0.9% 50 ML IV PRN (15:53)
--- NOTE | 2019-05-16 18:59 | Hospitalist Progress Note ---
Date of Service May 16, 2019 Assessment & Plan (1) Pyelonephritis: right-sided radiographically. 2nd to e.coli. was having flank pain recently - this is resolved. stop zosyn. change to omnicef 300mg BID in am. plan 14 days in total of abx. (2) Acute cholecystitis: s/p lap delilah today by Dr Lechuga. pain control. incentive sharron. await path. (3) UTI (urinary tract infection): 2nd to e.coli - urine cx was from [facility]. See above in "pyelonephritis". (4) Chest pain: suspect this is due to reflux disease. doubt pain from gall bladder as her lap delilah is done and still having discomfort. started carafate QID yesterday. will add PPI. if pain persists then GI consultation - perhaps EGD as outpatient? (5) Biliary dyskinesia: s/p lap delilah today. grossly the gall bladder was c/w acute cholecystitis based on Dr Lechuga's assessment. (6) Anemia: Ferritin is about 50 but with current infection it could be falsely elevated. MCV is low-normal; do suspect some element of FE def. B12 low-normal -- will supplement. This is a significant anemia and needs f/u post-d/c. (7) Abdominal pain: multifactorial - UTI, right-sided pyelonephritis, acute cholecystitis. cannot rule out reflux disease. (8) Right renal mass: ruled OUT. MRI right kidney WITHOUT ANY MASS. MRI most c/w focal pyelonephritis. urology was consulted; advised renal u/s in 2-3 months to ensure normal kidney. (9) Anxiety: started buspar 5mg BID. refer for outpatient counseling. consider SSRI. UDS was negative. PDMP showed no controlled substances. (10) GERD (gastroesophageal reflux disease): suspected cont carafate add PPI family updated progressing Subjective saw patient post-op from her lap delilah. she had just ambulated from the bathroom to the bed with minimal assistance from . her mom/dad were at bedside. she is still having discomfort in her chest despite use of carafate and having the gall bladder out today. when asked if she thought carafate was helping she couldn't say. no new complaints from yesterday. received records from [facility] -- urine cx from time of presentation in their ER a few days ago -- e.coli, >[id number] CFU - pansensitive. Review of Systems Constitutional: no fever and no chills Respiratory: no dyspnea Cardiovascular: as per Subjective / HPI; no dyspnea at rest, no dyspnea on exertion, no orthopnea and no paroxysmal nocturnal dyspnea Gastrointestinal: + abdominal pain and + bloating; no nausea Physical Exam Constitutional: + ill appearing; no acute distress and no altered mental s tatus ENMT: external ear and nose normal, oropharynx normal Respiratory: normal respiratory effort, lungs clear to auscultation Cardiovascular: RRR, no murmur, no edema Heart Sounds: normal S1 and normal S2 Vessels: posterior tibial pulses present and dorsalis pedis pulses present Gastrointestinal (Abdomen): Inspection/Auscultation: + abdomen distended (mild) and normal bowel sounds Percussion/Palpation: + abdomen tender (incisions) and abdomen soft; no guarding and no hepatosplenomegaly Skin: no rashes, warm and dry Psychiatric: Orientation: alert and oriented x 3 Results & Data Vital Signs (Past 12 Hours) Vital Signs Temp Pulse Pulse Resp BP BP Pulse Ox 05/16/19 18:37 36.3 C L 62 18 117/75 99 05/16/19 17:07 36.6 C 62 18 144/70 H 98 05/16/19 16:22 36.5 C 18 147/65 H 98 05/16/19 15:45 36.5 C 57 L 14 155/74 H 99 05/16/19 15:25 56 L 14 156/68 H 95 05/16/19 15:15 53 L 16 139/78 97 05/16/19 15:05 53 L 16 137/78 100 05/16/19 14:55 54 L 16 156/75 H 97 05/16/19 14:45 71 18 169/93 H 97 05/16/19 14:35 69 18 162/86 H 98 05/16/19 14:25 62 16 165/97 H 100 05/16/19 14:15 59 L 16 121/85 100 05/16/19 14:06 36 C L 62 14 140/75 100 05/16/19 12:12 36.6 C 63 18 115/79 100 05/16/19 07:15 36.5 C 59 L 16 116/65 100 Laboratory Results Laboratory Results - last 24 hr 05/14/19 05/16/19 05/16/19 05:56 00:45 07:53 WBC RBC Hgb Hct MCV MCH MCHC RDW Std Deviation RDW Coeff of Misti Plt Count MPV Sodium 141 Potassium 4.3 Chloride 110 H Carbon Dioxide 27 Anion Gap 4.0 BUN 3 L Creatinine 0.82 Est Cr Clr Drug Dosing 74.1 Est GFR ( Amer) 109.0 Est GFR (Non-Af Amer) 94.0 BUN/Creatinine Ratio 3.4 L Glucose 88 POC Glucose 84 Calcium 8.7 Vitamin B12 Folate IgA 97 Tiss Transglutamin IgA 1 Celiac Disease Interp SEE NOTE 05/16/19 05/16/19 07:53 07:53 WBC 3.52 L RBC 3.75 L Hgb 9.3 L Hct 30.2 L MCV 80.5 MCH 24.8 L MCHC 30.8 L RDW Std Deviation 53.9 H RDW Coeff of Misti 18.5 H Plt Count 171 MPV 9.5 Sodium Potassium Chloride Carbon Dioxide Anion Gap BUN Creatinine Est Cr Clr Drug Dosing Est GFR ( Amer) Est GFR (Non-Af Amer) BUN/Creatinine Ratio Glucose POC Glucose Calcium Vitamin B12 363 Folate 10.44 IgA Tiss Transglutamin IgA Celiac Disease Interp PG Care Time/CCT Total # of Minutes Spent Total Time Spent with Patient: Total time spent is greater than 50% in coordination of care (as documented) at patient's floor/unit and/or counseling patient: (1) Anemia Anemia type: other cause Other causes of anemia: other cause, not classified Qualified Code(s): D64.89 - Other specified anemias (2) Abdominal pain Abdominal location: generalized Qualified Code(s): R10.84 - Generalized abdominal pain (3) Chest pain Chest pain type: unspecified Qualified Code(s): R07.9 - Chest pain, unspecified (4) UTI (urinary tract infection) Urinary tract infection type: acute cystitis Hematuria presence: without hematuria Qualified Code(s): N30.00 - Acute cystitis without hematuria (5) GERD (gastroesophageal reflux disease) Esophagitis presence: esophagitis presence not specified Qualified Code(s): K21.9 - Gastro-esophageal reflux disease without esophagitis
[2019-05-16] MEDS: CYANOCOBALAMIN 500 MCG TABLET (VITAMIN B-12) PO SCH (20:13)
[2019-05-16] MEDS: HYDROCODONE/ACETAMOPHEN 5/325MG TAB PO PRN (20:13)
[2019-05-17] MEDS: HYDROCODONE/ACETAMOPHEN 5/325MG TAB PO PRN ×2 (00:26→05:01)
[2019-05-17 04:53] VITALS: O2SAT 99
[2019-05-17] MEDS ORDERED: OXYCODONE/ACETAMINOPHEN 5mg/325mg TAB PO PRN (06:10)
--- NOTE | 2019-05-17 06:13 | Surgery Progress Note ---
Date of Service May 17, 2019 Assessment & Plan (1) S/P laparoscopic cholecystectomy: sitting in chair, looking at phone has pain- says Batchelor doesn't work- somewhat expected wounds stable try Percocet, reassess later today encourage ambulation in hallway probable d/c tomorrow Results & Data Vital Signs (Past 12 Hours) Vital Signs Temp Pulse Resp BP BP Pulse Ox 05/17/19 04:00 36.8 C 60 16 128/67 99 05/17/19 00:25 37 C 66 16 125/70 100 05/16/19 19:34 36.4 C L 57 L 17 142/83 H 99 05/16/19 18:37 36.3 C L 62 18 117/75 99 PG Care Time/CCT Total # of Minutes Spent Total Time Spent with Patient: Total time spent is greater than 50% in coordination of care (as documented) at patient's floor/unit and/or counseling patient:
[2019-05-17 06:59] LABS: Hematocrit (blood only) 33.4 % (37-47); Hemoglobin 10.2 g/dL (12.0-16.0); Mean Corpuscular Hemoglobin 24.4 pg (25-34); Mean Corpuscular Hgb Conc 30.5 g/dL (32-36); Mean Corpuscular Volume 79.9 fL (80-100); Mean Platelet Volume 9.6 fL (7.4-10.4); Platelet Count 212 K/uL (130-400); RDW Coefficient of Variation 18.6 % (11.5-14.5); RDW Standard Deviation 53.7 fL (36.4-46.3); Red Blood Count 4.18 M/uL (4.2-5.4); White Blood Count 7.05 K/uL (4.8-10.8)
[2019-05-17 07:32] LABS: BUN Creatinine Ratio 4.3 (10-20); Creatinine Clr Calc Pharmacy 70.7 ml/min; Est GFR (African American) 102.9; Est GFR (Non-African American) 88.8; Potassium 4.2 mmol/L (3.5-5.1)
[2019-05-17] MEDS: LACTOBACILLUS ACIDOPHILUS (FLORANEX) TAB PO SCH ×2 (08:24→13:00)
[2019-05-17] MEDS: SUCRALFATE 1 GM/10 ML UDC PO SCH ×3 (08:24→16:21)
[2019-05-17] MEDS: CYANOCOBALAMIN 500 MCG TABLET (VITAMIN B-12) PO SCH (08:25)
[2019-05-17] MEDS: POTASSIUM CHLORIDE 20 MEQ TABCR PO SCH (08:25)
[2019-05-17] MEDS ORDERED: PANTOprazole 40 MG TAB PO SCH (09:00)
[2019-05-17] MEDS ORDERED: HEPARIN SOD 5,000 UNIT/0.5 ML VIAL SQ SCH (09:00)
[2019-05-17] MEDS ORDERED: CEFDINIR 300 MG CAP PO SCH (09:00)
[2019-05-17] MEDS: OXYCODONE/ACETAMINOPHEN 5mg/325mg TAB PO PRN ×2 (09:18→13:57)
[2019-05-17 15:02] VITALS: PULSE 84; TEMP 98.2
[2019-05-17 15:18] VITALS: BP 125/78
--- NOTE | 2019-05-17 16:42 | Discharge Summary ---
Date of Service May 17, 2019 Admission HPI Per Admitting Provider Ms. Grullon is a 33 year old female with no significant past medical history who was transferred to [facility] from [facility] due to a possible right sided renal mass. Ms. Grullon presented to [facility] yesterday due to intermittent RLQ pain that had been worsening over the past 2 days. The pain was associated with nausea, and chills, but no fever or vomiting. She reports the pain is located in her RLQ, and wraps around to her back. She states it is intermittent in nature, and worse when her bladder is full. She denies dysuria, hematuria, or urgency. She does report vaginal spotting. She states she checked her temperature at home and it was never elevated beyond 100F. Principal Diagnosis 1. e.coli UTI/right-sided pyelonephritis 2. biliary dyskinesia/chronic cholecystitis s/p laparoscopic cholecystectomy Discharge Exam Constitutional no acute distress and no altered mental status ENMT external ear and nose normal, oropharynx normal Respiratory normal respiratory effort, lungs clear to auscultation Cardiovascular RRR, no murmur, no edema Heart Sounds: normal S1 and normal S2 Vessels: posterior tibial pulses present and dorsalis pedis pulses present Gastrointestinal (Abdomen) Inspection/Auscultation: + abdomen distended (minimal ) and normal bowel sounds Percussion/Palpation: + abdomen tender (incisions) and abdomen soft; no guarding and no hepatosplenomegaly no right flank pain Skin no rashes, warm and dry Psychiatric Orientation: alert and oriented x 3 Discharge Data Allergies Allergy/AdvReac Type Severity Reaction Status Date / Time citalopram [From Celexa] Allergy Abdominal Verified 05/13/19 02:28 Pain Consultations [facility] Surgery - Abner Lechuga MD Procedures Performed Operation Date: 05/16/19 Laparoscopic Cholecystectomy - Abner Lechuga MD, FACS Ordered Studies 1. MRI abdomen - IMPRESSION: No discrete renal mass. Findings favor an inflammatory process of the right kidney with concern for pyelonephritis. Correlate with urinalysis. The appearance of the lower pole of the right kidney is suspected to be due to the presence of the accessory vascular supply or less likely focal nephronia/focal nephritis. Follow-up ultrasound in one to 3 months is recommended. 2. US gallbladder - IMPRESSION: Pericholecystic fluid with a mildly distended gallbladder and positive sonographic Garland's sign. In the absence of cholelithiasis this is less specific for cholecystitis though this remains of concern. Notably, these findings were not apparent on same day MRCP. Consider further confirmation with HIDA scan could be considered for clarification depending on the level of clinical concern and patient symptomatology. 3. HIDA scan - FINDINGS: There is prompt, uniform accumulation of the tracer by the liver. There is normal filling of the intrahepatic ducts, common bile duct and gallbladder and normal excretion of the tracer into the duodenum. There is decreased contraction of the gallbladder. The calculated gallbladder ejection fraction is 14% (normal >40%). There is moderate enterogastric reflux. IMPRESSION: 1. Decreased contractile response of the gallbladder to Kinevac infusion. 2. Moderate enterogastric reflux. Hospital Course (1) Pyelonephritis: Right-sided radiographically. 2nd to e.coli (urine culture from [facility] grew >100,000 CFU of e.coli). Initially was Rx with zosyn; transitioned to oral omnicef BID at discharge. Will complete 9 more days of latter. Right flank pain resolved prior to discharge. (2) Acute cholecystitis: At minimum the patient had biliary dyskinesia based on HIDA scan +/- delilah cystitis. Underwent lap delilah by Dr Abner Lechuga without complication. Post-op she tolerated diet and was passing flatus. Incisions were clean at discharge. Will have f/u with Dr Lechuga in the surgery clinic 1-2 weeks post-discharge. (3) UTI (urinary tract infection): 2nd to e.coli - urine cx was from [facility]. See above in "pyelonephritis". (4) Chest pain: Suspect this was due to reflux disease. Doubt pain from gall bladder as she continued to report this even following her lap delilah. Started carafate QID along with PPI. Recommended 1 week of carafate QID and PPI for at least 1 month. If pain persists then GI consultation as outpatient for consideration of EGD. (5) Biliary dyskinesia: s/p laparoscopic cholecystectomy this admission. Grossly the gall bladder appeared acutely inflamed. Pathology was pending at discharge. (6) Anemia: Ferritin was about 50 but with current infection it could have been falsely elevated. MCV was low-normal; do suspect some element of iron deficiency. B12 was low-normal -- will supplement. This is a significant anemia and needs f/u post-d/c. Hb at discharge was 10.2. (7) Right renal mass: Ruled OUT. At outside hospital a CT scan of abd/pelvis suggested a right-sided renal mass. Urology was consulted at [facility]; MRI abdomen was advised. MRI right kidney was WITHOUT ANY MASS. MRI most c/w focal pyelonephritis. Urology advised renal u/s in 2-3 months to ensure normal kidney. Patient was given name/office number of [facility] for follow-up. (8) Anxiety: Recommend outpatient counseling. Patient reported significant psychosocial stressors. (9) GERD (gastroesophageal reflux disease): suspected. cont carafate x 1 week post-discharge. added PPI (omeprazole 40mg) once daily for at least 1 month. May need outpatient GI follow-up depending on response. Total Time Total Time Spent Total Time Spent (In Minutes): 40 Total Time Includes: Examination of the Patient, Discharge Planning and Medication Reconciliation Discharge Plan Discharge Items Patient Disposition: Home - Self-Care Reason For Visit: QUESTION OF KIDNEY MASS; URINARY TRACT INFECTION Discharge Diagnosis: 1. laparoscopic cholecystectomy FOR acute cholecystitis (SICK gall bladder) 2. Urinary Tract Infection (UTI) 3. Right sided kidney infection (pyelonephritis) 4. Concern for kidney tumor/mass on right -- NONE SEEN on MRI of the kidney 5. anemia - likely due to low iron and mildly low vitamin B12 Activity: As commented below Activity Comment: light activity for 3 weeks Lifting: No more than 10 pounds Bathing Comment: may shower Sexual Activity: When tolerated Exercise Comment: wait 3 weeks Driving/Machine Use: Resume 3 days after discharge Non-emergency contact: Primary Care Provider and Surgeon Call non-emergency contact if: you have any medication questions, your symptoms worsen, your pain is worsening, your pain is concerning for you, you have a fever, your temperature is above 101.5, your wound has increased redness, your wound has increased drainage and your wound pain has increased Follow-up/Referrals: Abner Lechuga MD, FACS [Physician] - Demetrius Carrera MD [Physician] - (see Dr Carrera or one of his partners in 2-3 months for repeat kidney ultrasound) PCP,NO [Primary Care Provider] - Diet: Regular Addtl Attending Provider Instructions: SPECIAL CARE INSTRUCTIONS: * Cover incisions and change daily for comfort/drainage. may leave uncovered with dermabond * Leave steristrips in place * May use ibuprofen for pain as tolerated. * Expect some swelling and bruising. Call your doctor if: * Temperature above 101 degrees * Pain not relieved by pain medicine ordered * There is increased drainage or redness from any incision * You have any unanswered questions or concerns [phone]. FOLLOW UP VISIT: If not already scheduled, please call the office for a follow-up visit. OFFICE PHONE NUMBER: Dr. Lechuga Office for 2-3 weeks- check up Additional instructions from Dr Medina, hospitalist - 1. for your UTI/right-sided kidney infection -- take 9 more days of antibiotics. Cefdinir 300mg twice daily x 9 days. 2. for suspected reflux/heartburn/"GERD" -- * pantoprazole 40mg once daily for 30 days * sucralfate 1gm before meals & at bedtime for 1 week only * if your symptoms persist please ask your family doctor for a referral to a GI specialist for possible endoscopy 3. for anemia -- * take hezt-[id number]-[id number] ferrous sulfate (iron) 325mg twice daily for 2 months * take [id number]-xnhigba vitamin B12 1000mcg (1mg) daily for 6 months * the iron can make your stools dark * the iron can also cause constipation * have your family doctor repeat your CBC blood counts in a couple of weeks to e nsure they are improving * you will also need your iron levels and B12 level rechecked in a few months 4. follow-up - see your family doctor within 5-7 days; [facility]; Dr Lechuga as recommended 5. Return to [facility] or [facility] if -- * you have fevers over 100.5 degrees * you have worsening abdominal or back pain * you have inability to pass gas from your rectum or you have severe constipation * you have vomiting / inability to keep food & liquids down * any other concerns Pending Studies at Discharge: No Stand-Alone Forms: My [facility] zanda, Smoking Cessation Medications and DC Order Prescriptions: New oxycodone-acetaminophen [Percocet] 5-325 mg tablet 1 - 2 tab PO Q6H PRN (Reason: pain) Qty: 30 RF: 0 cefdinir 300 mg Capsule 300 mg PO BID 9 Days Qty: 18 RF: 0 sucralfate 1 gram tablet 1 gm PO ACHS Qty: 28 RF: 0 omeprazole 40 mg capsule,delayed release(DR/EC) 40 mg PO DAILY Qty: 30 RF: 0 ferrous sulfate 325 mg (65 mg iron) tablet,delayed release (DR/EC) 325 mg PO BID Qty: 60 RF: 1 cyanocobalamin (vitamin B-12) 1,000 mcg capsule 1,000 mcg PO DAILY Qty: 30 RF: 5 Discharge Orders: Discharge Order (Routine); Ordered 05/17/19 Ordered By: Abner Lechuga Admission Data Admit Date/Time: 05/13/19 01:40 Attending Provider: Vu Medina Admit Provider: Homero Corral Primary Care Provider: PCP,NO Other Providers: Demetrius Carrera ; Abner Lechuga Other Interventions: Discharge Summary Assessment (RN) Last Done: 05/17/19 15:17 DC Date/Time DO NOT enter until pt leaves facility: 05/17/19 17:15
[2019-05-18 00:37] LABS: Codeine Urine NEGATIVE ng/mL (<50); Hydrocodone Urine NEGATIVE ng/mL (<50); Hydromor Urine NEGATIVE ng/mL (<50); Morphine Urine 6050 ng/mL (<50); Norhydrocodone Conf Ur NEGATIVE ng/mL (<50); Noroxycodone Urine NEGATIVE ng/mL (<50); Oxycodone Urine NEGATIVE ng/mL (<50); Oxymorph Urine NEGATIVE ng/mL (<50)
[2019-05-18 13:09] LABS: Normetanephrine, Ur 127 mcg/24 h (35-482); Total Metanephrine 234 mcg/24 h (115-695)
== END 2019-05-17 17:15 | disposition home or self-care (01) | DRG 418 ==
LOC: SUATTDRO 01:40 → 3W 01:40